=== PATIENT | male | born 1955 | race Caucasian/White ===

== ENCOUNTER 2020-01-17 11:13 | Inpatient (IN) ==
[2020-01-17] MEDS ORDERED: NORMAL SALINE 1,000 ML IV ONE ×2 (11:30→16:03)
[2020-01-17] MEDS ORDERED: MORPHINE SULFATE 4 MG/ML SYRG IV ONE ×2 (11:30→12:48)
[2020-01-17 11:55] LABS: Hematocrit 32.1 % (42.0-52.0); Hemoglobin 10.3 gm/dL (13.5-18.0); Mean Cell Volume 79.1 fl (78-100); Mean Corpuscular Hemoglobin 25.4 pg (27-31); Mean Corpuscular Hgb Conc 32.1 g/dl (32-36); Neutrophil # 8.5 K/mm3 (1.3-6.0); Neutrophil % 83.7 % (42-75.0); Platelet Count 236 K/mm3 (150-450); Red Blood Count 4.06 M/mm3 (4.7-6.0); Red Cell Distribution Width 17.5 % (11.5-14.0); White Blood Count 10.1 K/mm3 (4.0-10.5)
--- NOTE | 2020-01-17 12:06 | ERNOTE ---
Lower Extremity HPI - Narrative Date of Service: 01/17/20 - General Lower Extremities Pain: hip: right Time Seen by Provider: 01/17/20 11:20 Source: patient Exam Limitations: no limitations - Immun/Allergies/Home Medications Immunizations: IMMUNIZATION HX Immunizations Up to Date No History of Influenza Vaccine No Hx Pneumococcal Vaccination No Allergies/Adverse Reactions: Allergies Allergy/AdvReac Type Severity Reaction Status Date / Time No Known Allergies Allergy Unverified 01/17/20 11:16 Home Medications: HOME MEDICATIONS NK 01/17/20 [Last Taken Unknown] - History of Present Illness Narrative: Patient presents to the ED for right hip pain via EMS. He injured his right hip yesterday morning at 4 am. He fell and it "popped". He tried to get around at home but was mostly bed bound and today ambulance called because it was hurting more. no head injury with the fall. No new neck pain (prior neck surgery). Denies other injuries. Has never had hip problem before. No CP or SOB. No clear acute focal N/T/W. Occurred: other - yesterday morning Location of Incident: home Method of Injury: Reports: fell Loss of Consciousness: Reports: no loss of consciousness Modifying Factors - (Improves): Reports: rest Modifying Factors - (Worsens): Reports: movement Associated Symptoms: Reports: unable to bear weight. Denies: headache, sensory loss, chest pain, bowel/bladder problems, other injuries Other Injuries: Reports: none Subsequent Symptoms: Denies: sensory loss, motor loss Prior Treament: Denies: recently seen, similar symptoms before Review of Systems - Review of Systems Constitutional: Absent: fever EYE: Present: no symptoms reported ENT: Absent: sore throat Respiratory: Absent: shortness of breath Cardiology: Absent: chest pain Gastrointestinal/Abdominal: Absent: abdominal pain Genitourinary: Absent: dysuria Musculoskeletal: Present: See HPI Skin: Present: other - no laceration Neurological: Present: no symptoms reported All Other Systems: All systems neg except as marked Medical History (Last Reviewed 01/17/20 @ 12:03 by Reagan Ricks MD) No pertinent past medical history Surgical History: Surgical History (Last Reviewed 01/17/20 @ 12:03 by Reagan Ricks MD) H/O neck surgery x2 Family History: Family History (Last Reviewed 01/17/20 @ 12:03 by Reagan Ricks MD) Brother Diabetes Social History: (Last Reviewed 01/17/20 @ 12:03 by Reagan Ricks MD) Tobacco: Smoking Status: Never smoker Alcohol: alcohol intake frequency: holiday/special occasion Substance Use: substance use type: does not use Physical Exam - Physical Exam General Appearance: Present: alert, no apparent distress, other - pain with any movement of right hip Head Exam: Present: normal inspection, no evidence of injury Eye Exam: Normal inspection: bilateral, PERRL: bilateral Ears, Nose, Throat: Present: normal ENT inspection Neck: Present: normal inspection Respiratory: Present: no respiratory distress, normal breath sounds, no accessory muscle use, lungs clear Cardiovascular/Chest: Present: regular rate, rhythm, normal peripheral pulses Gastrointestinal/Abdominal: Present: normal bowel sounds, nontender, nondistended, soft Back Exam: Present: no vertebral tenderness Extremity Exam: Present: other - right hip tenderness, limited ROM. Foot warm and well perfused Neurological Exam: Present: alert, other - pain limits exam but no clearacute focal motor or sensory deficit Skin Exam: Present: normal color, warm/dry Progress - Results and Orders Patient's Lab Results:: I have reviewed the patient's lab results. - Vital Signs Patient's Vital Signs:: I have reviewed the patient's vital signs. Vital Signs: Vital Signs 01/17/20 11:14 Temperature 37.1 C Pulse Rate 93 Respiratory Rate 18 Blood Pressure 169/70 H O2 Sat by Pulse Oximetry 96 - EKG EKG #1 EKG: NSR EKG read: Interp. by me EKG Comments: NSR rate 82. Non-specific, no STEMI - X-Ray X-Ray #1 X-Ray: chest Interpretation: Interp. by me X-ray Comments: I personally reviewed CXR image as well as official radiology report X-Ray #2 X-Ray: hip Interpretation: Interp. by me X-ray Comments: I personally reviewed hip x-rays as well as official radiology report - Progress/Reassessment Chief Complaint: Hip Pain/Injury Progress Note-Subjective: 01/17/20 12:[address] Low and Dr Hood. Patient will be admitted to the hospital. He understands need for surgery and admission. Departure Clinical Impression: Closed right hip fracture, Fall - Departure Disposition: Still a patient Condition: Stable
[2020-01-17 12:12] LABS: Albumin * 2.9 gm/dl (3.4-5.0); Anion Gap 12.7 mmol/L (6.8-13.8); BUN/Creatinine Ratio 14.5 (9.0-21.6); Bilirubin, Total 1.3 mg/dL (0.0-1.1); Ca. Corrected For Albumin 9.2 mg/dL (8.4-10.2); Calcium * 8.6 mg/dL (7.9-10.9); Carbon Dioxide 25.5 mmol/L (24-32.6); Potassium 3.2 mmol/L (3.4-4.6); Total Protein 6.3 gm/dL (6.2-8.2); Troponin I 0.03 ng/mL (0.00-0.10)
--- NOTE | 2020-01-17 13:24 | CONS ---
[facility] - General Date of Service: 01/17/20 Narrative: Mr. Donahue is a 64-year-old gentleman who injured his right hip yesterday but noted increased pain and thus came to the emergency department was found to have a mildly displaced right femoral neck fracture. He denies any other injury or history of trauma to the pelvis. He otherwise lives at home and is a community ambulator. Source: patient Exam Limitations: no limitations - History of Present Illness Timing/Duration: 24 hours Severity: mild Modifying Factors - (Worsens): Reports: movement Modifying Factors - (Improves): Reports: immobilization Associated Symptoms: denies symptoms Allergies/Adverse Reactions: Allergies No Known Allergies Allergy (Unverified 01/17/20 11:16) Home Medications: Home Medications Medication Instructions Recorded Last Taken NK 01/17/20 Unknown Medications - Medications Current Medications: Current Medications Sodium Chloride (Sodium Chloride 0.9%) 1,000 mls @ 250 mls/hr IV .Q4H ONE Stop: 01/17/20 15:29 Last Admin: 01/17/20 12:01 Dose: 250 mls/hr Documented by: Review of Systems - Review of Systems Narrative: Negative except for above Physical Examination - Exam Narrative: Right lower extremity: Pain with hip range of motion, no ecchymosis, lacerations or abrasions, no gross deformity, palpable dorsalis pedis pulse, sensations at light touch, he is able to flex and extend his toes and ankle Vital Signs: Vital Signs - Last Taken Temp 37.1 C 01/17/20 11:14 Pulse 84 01/17/20 12:13 Resp 16 01/17/20 12:13 BP 135/78 01/17/20 12:13 Pulse Ox 95 01/17/20 12:13 O2 Oxygen Delivery Method Room Air Constitutional: Present: Alert, Oriented x3 - Results and Findings: Narrative: AP pelvis 2 views of right hip: Mildly displaced right femoral neck fracture with underlying advanced hip arthrosis Lab/Microbiology results last 24 hrs: Abnormal/Pending Laboratory Last 24 HRS 01/17/20 01/17/20 11:49 11:49 RBC 4.06 L Hgb 10.3 L Hct 32.1 L MCH 25.4 L RDW 17.5 H Immature Gran % (Auto) 1.00 H Immature Gran # (Auto) 0.10 H Neutrophils % 83.7 H Lymphocytes % 7.9 L Neutrophils # 8.5 H Lymphocytes # 0.80 L Potassium 3.2 L Random Glucose 121 H Total Bilirubin 1.3 H Creatine Kinase 457 H Albumin 2.9 L - Assessments/Findings (1) Closed right hip fracture Diagnosis(s): We discussed his findings and options for treatment. The plan will be for a total hip arthroplasty. Risks and recovery was discussed. He will undergo Covid testing. The plan is to proceed tomorrow pending medical evaluation. Problem: Acute Qualifiers: Encounter type: initial encounter Qualified Code(s): S72.001A - Fracture of unspecified part of neck of right femur, initial encounter for closed fracture
[2020-01-17 14:57] LABS: Urine Bilirubin Negative (NEGATIVE); Urine Ketone 5 mg/dL (NEGATIVE); Urine Nitrite Negative (NEGATIVE); Urine Protein Negative (NEGATIVE); Urine Specific Gravity 1.025 SP.GR. (1.005-1.030)
[2020-01-17] MEDS ORDERED: ACETAMINOPHEN 325 MG TABLET PO PRN (15:07)
[2020-01-17 15:08] LABS: Urine Appearance Slightly Cloudy (CLEAR); Urine Bacteria None Seen; Urine Blood 5 /ul (NEGATIVE); Urine Color Yellow; Urine RBC None Seen /hpf (0-5); Urine WBC None Seen /hpf (0-5)
[2020-01-17] MEDS: MORPHINE SULFATE 4 MG/ML SYRG IV PRN ×2 (15:20→19:23)
[2020-01-17] MEDS ORDERED: POTASSIUM CHLORIDE 20 MEQ TABLET.SA PO ONE (16:01)
--- NOTE | 2020-01-17 16:04 | HP ---
Chief Complaint - Chief Complaint Date of Service: 01/17/20 Time of Service: 15:54 Chief Complaint: I have right hip pain History of Present Illness: 64-year-old male former smoker with no significant past medical history was brought to the ER by EMS for right hip pain secondary to a fall that occurred in the patient's home yesterday morning. The patient reports a precisely 4 AM yesterday he got up from bed and attempted to go to the bathroom but for some reason his leg gave out from under him and he fell onto his right side, patient reports he immediately heard a pop and had excruciating pain. He then managed to get up and decided not to go to the doctor for evaluation but his pain gradually got worse until this morning when he can take it anymore, he then called 911 and had himself transferred to be evaluated. Once in the ER the patient underwent imaging which confirmed a right mildly displaced femoral neck fracture, he was also found to have mildly elevated creatinine kinase most likely secondary to prolonged immobility after falling. Since then he has been treated with IV fluids and pain medications. Ortho was also consulted. Medical History (Last Reviewed 01/17/20 @ 15:28 by Yanelis Johnson RN) No pertinent past medical history Surgical History: Surgical History (Last Reviewed 01/17/20 @ 15:28 by Yanelis Johnson RN) H/O neck surgery x2 Family History: Family History (Last Reviewed 01/17/20 @ 15:28 by Yanelis Johnson RN) Brother Diabetes Social History: (Last Updated 01/17/20 @ 15:29 by Yanelis Johnson RN) Tobacco: Smoking Status: Former smoker Smoking End Date: 04/18/19 Alcohol: alcohol intake frequency: holiday/special occasion Substance Use: substance use type: does not use Peds Patient Hx - Developmental: No Pertinent Hx Peds Patient Hx - Medical: No Pertinent Hx Peds Patient Hx - Cardiac/Respiratory: No Pertinent Hx Peds Patient Hx - Surgical: No Surgical History Patient History - Cancer: No Hx of Cancer Review Of Systems (GEN) - Review of Systems Generalized/Overall Review: Present: No Symptoms Reported EENTM: Present: No Symptoms Reported Respiratory: Present: No Symptoms Reported Cardiac: Present: No Symptoms Reported Abdominal: Present: No Symptoms Reported Genitourinary: Present: No Symptoms Reported Musculoskeletal: Present: Joint Pain - Right hip pain Neurological: Present: No Symptoms Reported Skin: Present: No Symptoms Reported Endocrine: Present: No Symptoms Reported Immunizations: IMMUNIZATION HX Immunizations Up to Date No History of Influenza Vaccine No Hx Pneumococcal Vaccination No Allergies/Adverse Reactions: Allergies Allergy/AdvReac Type Severity Reaction Status Date / Time No Known Allergies Allergy Unverified 01/17/20 11:16 Home Medications: HOME MEDICATIONS NK 01/17/20 [Last Taken Unknown] Exam - Exam Vital Signs: Vital Signs - Last Taken Temp 36.4 C 01/17/20 15:26 Pulse 81 01/17/20 15:26 Resp 16 01/17/20 15:26 BP 144/68 01/17/20 15:26 Pulse Ox 95 01/17/20 15:26 Constitutional: Present: Alert, Oriented x3, Cooperative, Well developed, Well nourished, No distress Eye Exam: bilateral eye: normal inspection, PERRL, EOMI Neck: Present: non-tender, full range of motion, supple, normal inspection, trachea midline Back Exam: Present: normal inspection, no CVA tenderness, no vertebral tenderness Breasts: Present: Exam deferred, Nontender Respiratory: Present: chest non-tender, lungs clear, normal breath sounds, no respiratory distress, no accessory muscle use Cardiovascular/Chest: Present: normal peripheral pulses, regular rate, rhythm, no chest tenderness, no edema, no gallop, no JVD, no murmur, no rub Peripheral Pulses: femoral (R): 3+, femoral (L): 3+, dorsalis-pedis (R): 3+, dorsalis-pedis (L): 3+ Abdomen: Present: Normal bowel sounds, soft, nontender, nondistended, no rebound tenderness, no hepatospenomegaly, no masses, obese /Rectal: Present: Exam deferred Extremity: Present: no pedal edema, no calf tenderness, normal capillary refill, leg pain, other - Right lower extremity externally rotated and shortened, pulses and sensation intact Skin Exam: Present: normal color, warm/dry, no cyanosis Lymphatic: Present: no adenopathy Neurologic: Present: 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, no motor/sensory deficits, alert, normal mood/affect, oriented x 3 Appearance: Present: appropriate appearance, appropriate insight, neat, no memory impairment Eye contact: Present: cooperative, good eye contact, normal speech Thoughts: Present: normal thought pattern, no apparent hallucination Diagnostic Studies: Abnormal Lab Results 01/17/20 01/17/20 01/17/20 Range/Units 11:49 11:49 14:49 RBC 4.06 L (4.7-6.0) M/mm3 Hgb 10.3 L (13.5-18.0) gm/dL Hct 32.1 L (42.0-52.0) % MCH 25.4 L (27-31) pg RDW 17.5 H (11.5-14.0) % Immature Gran % (Auto) 1.00 H (0.001-0.429) % Immature Gran # (Auto) 0.10 H (0.000-0.0310) K/mm3 Neutrophils % 83.7 H (42-75.0) % Lymphocytes % 7.9 L (20-51) % Neutrophils # 8.5 H (1.3-6.0) K/mm3 Lymphocytes # 0.80 L (1.5-3.5) k/mm3 Potassium 3.2 L (3.4-4.6) mmol/L Random Glucose 121 H (70-110) mg/dL Total Bilirubin 1.3 H (0.0-1.1) mg/dL Creatine Kinase 457 H (0-259) U/L Albumin 2.9 L (3.4-5.0) gm/dl Urine Blood 5 H (NEGATIVE) /ul Urine Urobilinogen 2.0 H (NORMAL) EU/dl Laboratory Results WBC 10.1 K/mm3 (4.0-10.5) 01/17/20 11:49 RBC 4.06 M/mm3 (4.7-6.0) L 01/17/20 11:49 Hgb 10.3 gm/dL (13.5-18.0) L 01/17/20 11:49 Hct 32.1 % (42.0-52.0) L 01/17/20 11:49 MCV 79.1 fl (78-100) 01/17/20 11:49 MCH 25.4 pg (27-31) L 01/17/20 11:49 MCHC 32.1 g/dl (32-36) 01/17/20 11:49 RDW 17.5 % (11.5-14.0) H 01/17/20 11:49 Plt Count 236 K/mm3 (150-450) 01/17/20 11:49 MPV 8.0 fl (8-11.3) 01/17/20 11:49 Immature Gran % (Auto) 1.00 % (0.001-0.429) H 01/17/20 11:49 Immature Gran # (Auto) 0.10 K/mm3 (0.000-0.0310) H 01/17/20 11:49 Neutrophils % 83.7 % (42-75.0) H 01/17/20 11:49 Lymphocytes % 7.9 % (20-51) L 01/17/20 11:49 Monocytes % 7.3 % (0.0-9) 01/17/20 11:49 Eosinophils % 0.0 % (0.0-3.0) 01/17/20 11:49 Basophils % 0.1 % (0.0-1.0) 01/17/20 11:49 Nucleated RBC % 0.0 k/mm3 (0-1) 01/17/20 11:49 Neutrophils # 8.5 K/mm3 (1.3-6.0) H 01/17/20 11:49 Lymphocytes # 0.80 k/mm3 (1.5-3.5) L 01/17/20 11:49 Monocytes # 0.7 k/mm3 (0.0-1.0) 01/17/20 11:49 Eosinophils # 0.0 k/mm3 (0.0-0.7) 01/17/20 11:49 Absolute Basophils 0.0 k/mm3 (0.0-0.1) 01/17/20 11:49 Sodium 135 mmol/L (132-142) 01/17/20 11:49 Plasma Sodium 135 mmol/L (130-142) 01/17/20 11:49 Potassium 3.2 mmol/L (3.4-4.6) L 01/17/20 11:49 Chloride 100 mmol/L (97-106) 01/17/20 11:49 Carbon Dioxide 25.5 mmol/L (24-32.6) 01/17/20 11:49 Anion Gap 12.7 mmol/L (6.8-13.8) 01/17/20 11:49 BUN 10 mg/dL (6-23) 01/17/20 11:49 Creatinine 0.69 mg/dL (0.4-1.4) 01/17/20 11:49 Est GFR (Non-Af Amer) 123 mL/min (60-130) 01/17/20 11:49 BUN/Creatinine Ratio 14.5 (9.0-21.6) 01/17/20 11:49 Random Glucose 121 mg/dL (70-110) H 01/17/20 11:49 Lactic Acid, Venous 1.1 mmol/L (0.4-2.0) 01/17/20 11:49 Calcium 8.6 mg/dL (7.9-10.9) 01/17/20 11:49 Calcium Adj for Albumin 9.2 mg/dL (8.4-10.2) 01/17/20 11:49 Total Bilirubin 1.3 mg/dL (0.0-1.1) H 01/17/20 11:49 AST 23 U/L (0-48) 01/17/20 11:49 ALT 24 U/L (19-67) 01/17/20 11:49 Alkaline Phosphatase 77 U/L (50-170) 01/17/20 11:49 Creatine Kinase 457 U/L (0-259) H 01/17/20 11:49 Troponin I 0.030 ng/mL (0.00-0.10) 01/17/20 11:49 Total Protein 6.3 gm/dL (6.2-8.2) 01/17/20 11:49 Albumin 2.9 gm/dl (3.4-5.0) L 01/17/20 11:49 Urine Color Yellow 01/17/20 14:49 Urine Appearance Slightly cloudy (CLEAR) 01/17/20 14:49 Urine pH 6.0 pH (5.0-7.0) 01/17/20 14:49 Ur Specific [place] 1.025 SP.GR. (1.005-1.030) 01/17/20 14:49 Urine Protein Negative mg/dL (NEGATIVE) 01/17/20 14:49 Urine Glucose (UA) Negative mg/dL (NEGATIVE) 01/17/20 14:49 Urine Ketones 5 mg/dL (NEGATIVE) 01/17/20 14:49 Urine Blood 5 /ul (NEGATIVE) H 01/17/20 14:49 Urine Nitrate Negative (NEGATIVE) 01/17/20 14:49 Urine Bilirubin Negative mg/dl (NEGATIVE) 01/17/20 14:49 Urine Urobilinogen 2.0 EU/dl (NORMAL) H 01/17/20 14:49 Ur Leukocyte Esterase Negative /ul (NEGATIVE) 01/17/20 14:49 Urine RBC None seen /hpf (0-5) 01/17/20 14:49 Urine WBC None seen /hpf (0-5) 01/17/20 14:49 Ur Epithelial Cells 0-5 /hpf (0-5) 01/17/20 14:49 Urine Bacteria None seen (NONE) 01/17/20 14:49 Urine Culture Comments No culture indicated 01/17/20 14:49 SARS-CoV-2 (PCR) Not detected (NotDetected) 01/17/20 12:13 Assessment/Plan - Narrative Narrative: Patient was evaluated medical chart was reviewed and decision to admit to [facility] for diagnosis of right femoral neck fracture was made. The patient was evaluated by Ortho who plans on taking him to the OR in the morning to repair the fracture. In the meantime we will continue to monitor him and manage his pain. His potassium was found to be mildly decreased, so we will give him potassium supplement. After evaluating the patient, he was cleared for his surgery. - Assessment/Plan (1) Closed right hip fracture Problem: Acute Qualifiers: Encounter type: initial encounter Qualified Code(s): S72.001A - Fracture of unspecified part of neck of right femur, initial encounter for closed fracture (2) Fall Problem: Acute (3) Hypokalemia Problem: Acute (4) Elevated creatine kinase Problem: Acute
[2020-01-18] MEDS ORDERED: NORMAL SALINE 1,000 ML IV ONE (00:02)
[2020-01-18] MEDS: MORPHINE SULFATE 4 MG/ML SYRG IV PRN ×3 (00:02→08:50)
[2020-01-18 06:50] LABS: Albumin * 2.6 gm/dl (3.4-5.0); Anion Gap 13.7 mmol/L (6.8-13.8); BUN/Creatinine Ratio 15.5 (9.0-21.6); Bilirubin, Total 0.8 mg/dL (0.0-1.1); Calcium * 8.2 mg/dL (7.9-10.9); Carbon Dioxide 22.8 mmol/L (24-32.6); Potassium 3.5 mmol/L (3.4-4.6); Total Protein 5.7 gm/dL (6.2-8.2)
[2020-01-18] MEDS ORDERED: ceFAZolin SODIUM 1 GM VIAL ONE (07:57)
[2020-01-18] MEDS ORDERED: ISOPROPYL ALCOHOL 480 APPL BTL MC ONE (07:57)
--- NOTE | 2020-01-18 08:50 | ANES ---
Anesthesia Pre Procedure Eval Vitals/Labs: Last Vital Signs Temp 37.2 C 01/18/20 06:58 Pulse 82 01/18/20 06:58 Resp 16 01/18/20 06:58 BP 159/64 H 01/18/20 06:58 Pulse Ox 92 L 01/18/20 06:58 HOME MEDICATIONS NK 01/17/20 [Last Taken Unknown] Allergies/Adverse Reactions: Allergies Allergy/AdvReac Type Severity Reaction Status Date / Time No Known Allergies Allergy Unverified 01/17/20 11:16 - Planned Procedure Planned Procedure: Right Hip Fracture Medication List Reviewed:: Yes Allergies Verified: Yes Medical History (Last Reviewed 01/18/20 @ 08:49 by Humphrey Latif CRNA) No pertinent past medical history Surgical History (Last Reviewed 01/18/20 @ 08:49 by Humphrey Latif CRNA) H/O neck surgery x2 Family History (Last Reviewed 01/18/20 @ 08:49 by Humphrey Latif CRNA) Brother Diabetes - Airway/Neck/Teeth Within Normal Limits:: Yes Teeth Condition: missing Mallampatti Score: 2 Thyromental (T-M) distance: > 6 cm Mandibulo Hyoid distance: > 3 cm - Respiratory Respiratory Physical: lungs clear Smoking Status: Former smoker Discussed smoking cessation including day of surgery: No Sleep Apnea currently treated: No Sleep Apnea by current assessment: No Discussed Risks/Treatment of RADHA: No - Cardiovascular Tolerate Activity: Good Heart Sounds: S1 & S2, Regular - Gastrointestinal NPO since: mn - Anesthesia Assessment and Plan ASA Class: PS, II Anesthesia Type Plan: Spinal
[2020-01-18] MEDS ORDERED: LIDOCAINE HCL 20 ML VIAL ONE (08:55)
[2020-01-18] MEDS ORDERED: fentaNYL CITRATE/PF 50 MCG/ML AMPUL ONE (08:55)
[2020-01-18] MEDS ORDERED: ONDANSETRON HCL/PF 2 MG/ML VIAL ONE (08:55)
[2020-01-18] MEDS ORDERED: PROPOFOL VIAL IV ONE (08:56)
[2020-01-18] MEDS: RINGER'S SOLUTION,LACTATED 1,000 ML IV PRN ×2 (09:02→10:45)
[2020-01-18] MEDS ORDERED: TRANEXAMIC ACID 1,000 MG in NORMAL SALINE 100 ML IV ONE (10:00)
[2020-01-18] MEDS ORDERED: ceFAZolin SODIUM 1 GM VIAL IV PRN (10:13)
--- NOTE | 2020-01-18 11:03 | OR ---
Operative Report - Dictated Report Narrative: Date: 01/18/2020 Preoperative diagnosis: Right closed displaced femoral neck fracture with hip degenerative joint disease. Postoperative diagnosis: Right closed displaced femoral neck fracture with hip degenerative joint disease. Procedure: Right total hip arthroplasty. Surgeon: Catrachito Low M.D. Supervisor Research [employer]: Renzo Rodas PA-C (provided an essential set of skilled, educated and assisted with transfer, positioning, prepping, draping, manipulation, traction, irrigation, suturing, and placement of dressings all of which cannot be performed by the available surgical crew) Anesthesia: Spinal. Complications: None Specimens: Bone. Estimated blood loss: 100 milliliters. Retained implants: [place] size 6 femoral stem high offset. Size 54 millimeter outside diameter 3-hole [place] Gription acetabular cup. 54 millimeter outside by 40 millimeter inside diameter highly cross-linked acetabular liner. 40 millimeter diameter + 1.5 millimeter cobalt chromium femoral head. Cancellous 6.5mm screw 30 millimeter length Indications: Mr. Donahue is a 64-year-old gentleman who fell injuring his right hip. He was found have a displaced femoral neck fracture as well as underlying arthrosis. Patient wished to proceed with surgical treatment. The risks, benefits, and alternatives were discussed in clinic. The risks of , blood clots, bleeding, infection, nerve/tendon blood vessel/ injury, malposition of components, dislocation and/or instability of joint, intraoperative fracture, postoperative limited range of motion, persistent pain, failure of components, and need for additional procedures. Patient wished to proceed. Consent was obtained after answering all questions. Procedure: After marking the correct extremity on the floor, the patient was taken to the operating room. A timeout was performed. IV antibiotics consisting of Ancef were administered prior to the procedure. A spinal anesthetic was induced by anesthesia. A Zarate catheter was inserted. The patient was then transitioned to a lateral position on a well-padded pegboard. An axillary roll was placed. The head was in neutral position. The non- operative down leg was well-padded with SCD and ADILENE hose in place. The arms were supported and padded to protect from any undue pressure on the bony prominences and nerves. A well-padded anterior and posterior pelvic and chest posts were secured in order to maintain a stable position of the pelvis. This was placed so that the pelvis was perpendicular to the floor. The body was in line with the pelvis. Once it was felt that we had protected all the bony prominences and the patient was well secured with a safety belt as well, the leg was pre-scrubbed with alcohol, prepped and draped in a standard sterile fashion. A standard anterior lateral hip incision was marked out over the greater trochanter. [place] drapes were then placed. The skin incision was then made. Sharp dissection with a scalpel utilizing cautery for hemostasis was carried out down to the gluteus and iliotibial band fascia. This was split in line with the skin incision. The greater trochanter bursa was excised. The anterior and posterior margins of the abductor tendon were identified. The anterior 1/2-1/3 of the tendon was tagged and reflected off the greater trochanter leaving a sleeve of tendon for repair at the completion of the case. This exposed the underlying hip joint capsule. An inverted T-type capsulotomy was made extending this up to the brim of the acetabulum. We encountered a hematoma and noted displaced femoral neck fracture. Using Homans to assist with elevation of the soft tissues off the anterior, superior, and inferior aspects of the femoral neck, the hip was then placed in a figure 4 position and the femoral head was dislocated. With the leg in an externally rotated and adducted position, the cutting flag was utilized in order to goyo for a standard femoral neck cut approximately a fingerbreadth above the level of the lesser trochanter. This was done with reference to pre-operative films and overall alignment. This was done while protecting the surrounding soft tissues with Homans. The femoral head was then removed and sized for guidance on preparation of the acetabulum. It was noted that there was loss of articular cartilage on both the femoral head and weightbearing portions of the acetabulum. We then returned the leg to the table and turned our attention to the acetabulum. While protecting the surrounding soft tissues, the labrum and remaining tissue in the fovea were excised using a scalpel and cautery. A series of reamers up to size 54 millimeter were utilized to prepare the acetabulum. The final reamer had good purchase and exposed the bleeding subchondral bone. The acetabulum was then thoroughly irrigated ensuring that all bony and cartilaginous materials were removed, and the final acetabular shell was impacted into place. This was placed in approximately 45 degrees of abduction and 20 degrees of anteversion utilizing the outrigger and body axis for alignment. This had a good press fit. 1 6.5mm cancellous screw was placed in the superior posterior quadrant of the acetabulum. The shell was then thoroughly irrigated and the final polyethylene was impacted into place ensuring that it seated completely. This was then protected with a sponge while we returned our attention to the femur. With the leg in a figure 4 position, utilizing Homans for soft tissue protection, a box cutting osteotome, followed by Charnley awl, followed by serial reamers and broaches were utilized in order to prepare the femur. It was found that a size 6 broach gave good axial and rotational stability. The calcar reamer was utilized in order to clean up the cut edges. The proximal femur was visualized to ensure that there were no signs of fracture. A series of heads and necks were trialed. It was found that a high offset neck and a + 1.5 femoral head gave good overall stability. There was minimal longitudinal instability. With the leg in the position of sleep, the femoral head was well covered. Hip range of motion was able to reach full extension and external rotation to greater than 75 degrees prior to impingement along the posterior acetabulum. The hip was able to be flexed to greater than 90 degrees with internal rotation greater than 60 degrees prior to anterior impingement. The limb lengths were near equal based on comparison to the contralateral side and the prior placed limb length stitch. At this point it was felt these were the appropriately sized femoral components as well as neck and femoral head. The trial implants were removed. The femur was thoroughly irrigated. The final implants were impacted into place, and the hip was reduced. Anesthesia then administered intravenous tranexamic acid. The capsule was repaired with a single interrupted #1 Vicryl. The abductor tendon was repaired to the greater trochanter utilizing #5 Ethibond through drill holes. This was oversewn with #1 Vicryl. The fascia was closed with int errupted #1 Vicryl. The wounds were thoroughly irrigated as we closed in layers. The deep and subcutaneous fat layers were closed with 0 and 3-0 Vicryl respectively. The subcutaneous tissue was closed with a running 3-0 Vicryl and the skin heather. All sponge, needle, blade, and instrument counts were correct prior to closing the wounds. Sterile dressings consisting of xeroform, 4 x 4's, and tape were applied. The patient was awoken and transferred to her hospital bed and then to the postanesthesia care unit in stable condition. Postoperative condition: The plan is to admit to the medical/surgical inpatient floor postoperatively. There will be a projected 1 to 3 day hospital stay. Postoperatively 24 hours of IV antibiotics, pain control, physical therapy, occupational therapy, and medical comanagement will be utilized. Patient will be weightbearing as tolerated with anterior hip precautions. Postoperative films will be obtained in the recovery room.
[2020-01-18] MEDS ORDERED: DEXTROSE 5%-LACTATED RINGERS 1,000 ML IV PRN (11:04)
[2020-01-18] MEDS ORDERED: ACETAMINOPHEN 500 MG TABLET PO PRN (11:04)
[2020-01-18] MEDS ORDERED: MAG HYDROX/ALUMINUM HYD/SIMETH 30 ML UDC PO PRN (11:04)
[2020-01-18] MEDS ORDERED: ONDANSETRON HCL/PF 2 MG/ML VIAL IV PRN (11:04)
[2020-01-18] MEDS ORDERED: diphenhydrAMINE HCL 50 MG/ML VIAL IV PRN (11:04)
[2020-01-18] MEDS ORDERED: MAGNESIUM HYDROXIDE 30 ML UDC PO PRN (11:04)
[2020-01-18] MEDS ORDERED: ZOLPIDEM TARTRATE 5 MG TABLET PO PRN (11:04)
--- NOTE | 2020-01-18 11:27 | ANES ---
Post Anesthesia Discharge - Transfer of Care Transfer of Care handoff given to nurse: Yes - Discharge from PACU Discharge from PACU when meets criteria: Yes - Discharge to ASU Discharge to ASU-no complications/pt stable: Yes
--- NOTE | 2020-01-18 11:38 | ANES ---
Post Anesthesia Assessment - Vital Signs Vitals: Last Vital Signs Temp 36.2 C 01/18/20 11:05 Pulse 84 01/18/20 11:25 Resp 12 01/18/20 11:25 BP 117/63 01/18/20 11:25 Pulse Ox 97 01/18/20 11:25 Airway Patency: Normal - Mental Status Level Of Consciousness: Awake - Pain Level Pain Score: 0 - N/V Assessment Nausea/Vomiting Presence: None Dehydration:: No
[2020-01-18] MEDS: KETOROLAC TROMETHAMINE 15 MG/ML VIAL IV SCH ×2 (11:41→19:24)
--- NOTE | 2020-01-18 11:59 | PN ---
Subjective - Date and Time Seen Date: 01/18/20 Time: 11:53 Subjective Narrative: I feel okay, my hip pain is better. Objective Objective Narrative: 64-year-old male status post total right hip arthroplasty was evaluat ed at bedside and was found to be afebrile and in no acute distress. Patient just returned from the OR where he underwent a total arthroplasty to repair his right hip fracture. There were no adverse events reported and the surgery went smoothly. Right now the patient is in his room resting comfortably, he denies any pain at the moment but pain medications were ordered to be administered if necessary. The patient will stay for additional days in the hospital to recover from his surgery and to start rehab. We will follow up with further recommendations from Ortho. - Review of Systems Generalized/Overall Review: Reports: No Symptoms Reported EENTM: Reports: No Symptoms Reported Respiratory: Reports: No Symptoms Reported Cardiac: Reports: No Symptoms Reported Abdominal: Reports: No Symptoms Reported Genitourinary Symptoms: Reports: No Symptoms Reported Musculoskeletal Complaints: Reports: Joint Pain Neurological: Reports: No Symptoms Reported Skin: Reports: No Symptoms Reported Endocrine: Reports: No Symptoms Reported - Vitals Vitals: Last Vital Signs Temp 36.1 C 01/18/20 11:30 Pulse 94 01/18/20 11:30 Resp 92 H 01/18/20 11:30 BP 125/73 01/18/20 11:30 Pulse Ox 95 01/18/20 11:30 - Abnormal Lab Findings Abnormal Lab Findings: Abnormal Lab Results 01/17/20 01/17/20 01/17/20 Range/Units 11:49 11:49 14:49 RBC 4.06 L (4.7-6.0) M/mm3 Hgb 10.3 L (13.5-18.0) gm/dL Hct 32.1 L (42.0-52.0) % MCH 25.4 L (27-31) pg RDW 17.5 H (11.5-14.0) % Immature Gran % (Auto) 1.00 H (0.001-0.429) % Immature Gran # (Auto) 0.10 H (0.000-0.0310) K/mm3 Neutrophils % 83.7 H (42-75.0) % Lymphocytes % 7.9 L (20-51) % Neutrophils # 8.5 H (1.3-6.0) K/mm3 Lymphocytes # 0.80 L (1.5-3.5) k/mm3 Potassium 3.2 L (3.4-4.6) mmol/L Carbon Dioxide (24-32.6) mmol/L Random Glucose 121 H (70-110) mg/dL Total Bilirubin 1.3 H (0.0-1.1) mg/dL Creatine Kinase 457 H (0-259) U/L Total Protein (6.2-8.2) gm/dL Albumin 2.9 L (3.4-5.0) gm/dl Urine Blood 5 H (NEGATIVE) /ul Urine Urobilinogen 2.0 H (NORMAL) EU/dl 01/18/20 Range/Units 06:20 RBC (4.7-6.0) M/mm3 Hgb (13.5-18.0) gm/dL Hct (42.0-52.0) % MCH (27-31) pg RDW (11.5-14.0) % Immature Gran % (Auto) (0.001-0.429) % Immature Gran # (Auto) (0.000-0.0310) K/mm3 Neutrophils % (42-75.0) % Lymphocytes % (20-51) % Neutrophils # (1.3-6.0) K/mm3 Lymphocytes # (1.5-3.5) k/mm3 Potassium (3.4-4.6) mmol/L Carbon Dioxide 22.8 L (24-32.6) mmol/L Random Glucose (70-110) mg/dL Total Bilirubin (0.0-1.1) mg/dL Creatine Kinase (0-259) U/L Total Protein 5.7 L (6.2-8.2) gm/dL Albumin 2.6 L (3.4-5.0) gm/dl Urine Blood (NEGATIVE) /ul Urine Urobilinogen (NORMAL) EU/dl - Exam Constitutional: Present: Alert, Oriented x3, Cooperative, Well developed, Well nourished, No distress ENT Exam: Present: normal ENT inspection, hearing grossly normal Neck: Present: non-tender, full range of motion, supple, normal inspection, trachea midline Breasts: Present: Exam deferred Respiratory: Present: chest non-tender, lungs clear, normal breath sounds, no respiratory distress, no accessory muscle use Cardiovascular/Chest: Present: normal peripheral pulses, regular rate, rhythm, no chest tenderness, no edema, no gallop, no JVD, no murmur, no rub Abdomen: Present: Normal bowel sounds, soft, nontender, nondistended, no rebound tenderness, no hepatospenomegaly, no masses /Rectal: Present: Exam deferred Extremity: Present: no pedal edema, no calf tenderness, normal capillary refill, other - Right hip covered by clean dry dressings, no evidence of acute bleeding. 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, no motor/sensory deficits, alert, normal mood/affect, oriented x 3 Appearance: Present: appropriate appearance, appropriate insight, neat, no memory impairment Eye contact: Present: cooperative, good eye contact, normal speech Thoughts: Present: normal thought pattern, no apparent hallucination Cauti Physician Documentation - Urinary Catheter Management Urethral (Zarate) Urethral Indwelling: Yes Date of Insertion: 01/18/20 Time of Insertion: 09:35 Assessment/Plan - Problems/Diagnosis (1) Closed right hip fracture Problem: Acute Qualifiers: Encounter type: initial encounter Qualified Code(s): S72.001A - Fracture of unspecified part of neck of right femur, initial encounter for closed fracture (2) Fall Problem: Acute (3) Hypokalemia Problem: Acute (4) Elevated creatine kinase Problem: Acute (5) S/P total hip arthroplasty Problem: Acute
[2020-01-18] MEDS: ceFAZolin SODIUM 1 GM in DEXTROSE 5 % IN WATER 100 ML IV SCH ×4 (12:41→19:24)
[2020-01-18] MEDS: oxyCODONE HCL/ACETAMINOPHEN 1 TAB TABLET PO PRN (16:42)
[2020-01-18] MEDS ORDERED: SENNOSIDES/DOCUSATE SODIUM 1 TAB TABLET PO SCH (21:00)
[2020-01-19] MEDS: KETOROLAC TROMETHAMINE 15 MG/ML VIAL IV SCH ×2 (00:26→07:26)
[2020-01-19] MEDS: ceFAZolin SODIUM 1 GM in DEXTROSE 5 % IN WATER 100 ML IV SCH ×2 (00:27)
[2020-01-19 06:19] LABS: Hematocrit 29.6 % (42.0-52.0); Hemoglobin 9.2 gm/dL (13.5-18.0); Mean Cell Volume 81.8 fl (78-100); Mean Corpuscular Hemoglobin 25.4 pg (27-31); Mean Corpuscular Hgb Conc 31.1 g/dl (32-36); Mean Platelet Volume 8.5 fl (8-11.3); Neutrophil # 6.9 K/mm3 (1.3-6.0); Neutrophil % 77.4 % (42-75.0); Platelet Count 230 K/mm3 (150-450); Red Blood Count 3.62 M/mm3 (4.7-6.0); Red Cell Distribution Width 17.5 % (11.5-14.0); White Blood Count 8.9 K/mm3 (4.0-10.5)
[2020-01-19 06:33] LABS: Albumin * 2.5 gm/dl (3.4-5.0); Anion Gap 9.7 mmol/L (6.8-13.8); BUN/Creatinine Ratio 13.5 (9.0-21.6); Bilirubin, Total 0.9 mg/dL (0.0-1.1); Calcium * 8.1 mg/dL (7.9-10.9); Carbon Dioxide 25.4 mmol/L (24-32.6); Potassium 3.1 mmol/L (3.4-4.6); Total Protein 5.4 gm/dL (6.2-8.2)
[2020-01-19] MEDS: oxyCODONE HCL/ACETAMINOPHEN 1 TAB TABLET PO PRN ×3 (07:25→18:40)
--- NOTE | 2020-01-19 08:53 | PN ---
Subjective - Date and Time Seen Date: 01/19/20 Time: 10:00 Subjective Narrative: Subjective: Reports mild pain. Was able to move about the bed with therapy. Pain is well-controlled. Voiding without any complications. Tolerating by mouth intake. Denies any nausea or vomiting. Denies calf pain. Slept well. Physical exam: Alert and oriented to person, place and time Right lower extremity: Palpable dorsalis pedis pulse. Sensation grossly intact to light touch. Dressings clean and dry. Able to flex and extend ankle and toes. No excessive drainage. Calf and thigh are soft and nontender. Assessment: Postop day 1 status post right total hip arthroplasty. Plan: Continue with physical and occupational therapy weightbearing as tolerated. Continue with anticoagulation. 24 hours postoperative prophylactic antibiotics. Pain control with goal to rely on oral medications. Continue bowel regimen. Will need 6 weeks with walker or assitive device to protect joint while ambulating during the recovery process. Discharge planning. Objective - Vitals Vitals: Last Vital Signs Temp 38.0 C 01/19/20 07:15 Pulse 89 01/19/20 07:15 Resp 12 01/19/20 07:15 BP 112/70 01/19/20 07:15 Pulse Ox 96 01/19/20 07:15 - Abnormal Lab Findings Abnormal Lab Findings: Abnormal Lab Results 01/19/20 01/19/20 Range/Units 06:10 06:10 RBC 3.62 L (4.7-6.0) M/mm3 Hgb 9.2 L (13.5-18.0) gm/dL Hct 29.6 L (42.0-52.0) % MCH 25.4 L (27-31) pg MCHC 31.1 L (32-36) g/dl RDW 17.5 H (11.5-14.0) % Immature Gran # (Auto) 0.04 H (0.000-0.0310) K/mm3 Neutrophils % 77.4 H (42-75.0) % Lymphocytes % 10.7 L (20-51) % Monocytes % 10.6 H (0.0-9) % Neutrophils # 6.9 H (1.3-6.0) K/mm3 Lymphocytes # 0.95 L (1.5-3.5) k/mm3 Potassium 3.1 L (3.4-4.6) mmol/L Random Glucose 114 H (70-110) mg/dL Total Protein 5.4 L (6.2-8.2) gm/dL Albumin 2.5 L (3.4-5.0) gm/dl Cauti Physician Documentation - Urinary Catheter Management Urethral (Zarate) Urethral Indwelling: Yes Date of Insertion: 01/18/20 Time of Insertion: 09:35 Assessment/Plan - Problems/Diagnosis (1) Closed right hip fracture Problem: Acute Qualifiers: Encounter type: subsequent encounter Narrative: WBAT, Anterior hip precautions. Will need 7 days of lovenox followed by 5 weeks of daily aspirin 325mg. Keep wound dry. Cover with dry gauze. Use walker. Follow-up 2 weeks. OK to DC from ortho standpoint. Pain meds.
[2020-01-19] MEDS ORDERED: ENOXAPARIN SODIUM 40 MG/0.4 ML SYRG SC SCH (10:04)
[2020-01-19] MEDS ORDERED: POTASSIUM CHLORIDE 20 MEQ TABLET.SA PO ONE (11:30)
--- NOTE | 2020-01-19 12:09 | DS ---
(1) Closed right hip fracture Problem: Acute Qualifiers: Encounter type: subsequent encounter (2) Fall Problem: Acute (3) Hypokalemia Problem: Acute (4) Elevated creatine kinase Problem: Acute (5) S/P total hip arthroplasty Problem: Acute Qualifiers: Laterality: right Qualified Code(s): Z96.641 - Presence of right artificial hip joint Date of Discharge:: 01/19/20 Hospital Course: 64-year-old male admitted for a right femoral neck fracture secondary to a fall that occurred in his home was evaluated at bedside and was found to be afebrile and in no acute distress. Patient underwent a successful surgery to repair his fracture, there were no adverse events reported. The postop period has been uneventful and he appears to be recuperating very well. The patient reports adequate pain control with the current pain medications that he is being administered, so we'll not make any changes. The patient was cleared for discharge by the orthopedic surgeon who recommends 6 weeks of anticoagulation and ongoing PT to help with the patient's rehab. This was discussed with the patient he is in agreement that he wants to go home and plans on doing physical therapy on outpatient basis. Therefore we will discharge patient home with instructions to follow-up with the orthopedic surgeon in a few weeks. Procedures Performed: see notes below - Right total hip arthroplasty Results and Findings: Lab Pending Results 01/17/20 11:49: WBC 10.1, RBC 4.06 L, Hgb 10.3 L, Hct 32.1 L, MCV 79.1, MCH 25.4 L, MCHC 32.1, RDW 17.5 H, Plt Count 236, MPV 8.0, Immature Gran % (Auto) 1.00 H, Immature Gran # (Auto) 0.10 H, Neutrophils % 83.7 H, Lymphocytes % 7.9 L, Monocytes % 7.3, Eosinophils % 0.0, Basophils % 0.1, Nucleated RBC % 0.0, Neutrophils # 8.5 H, Lymphocytes # 0.80 L, Monocytes # 0.7, Eosinophils # 0.0, Absolute Basophils 0.0 01/17/20 11:49: Sodium 135, Plasma Sodium 135, Potassium 3.2 L, Chloride 100, Carbon Dioxide 25.5, Anion Gap 12.7, BUN 10, Creatinine 0.69, Est GFR (Non-Af Amer) 123, BUN/Creatinine Ratio 14.5, Random Glucose 121 H, Calcium 8.6, Calcium Adj for Albumin 9.2, Total Bilirubin 1.3 H, AST 23, ALT 24, Alkaline Phosphatase 77, Creatine Kinase 457 H, Troponin I 0.030, Total Protein 6.3, Albumin 2.9 L 01/17/20 11:49: Lactic Acid, Venous 1.1 01/17/20 12:13: SARS-CoV-2 (PCR) Not detected 01/17/20 14:49: Urine Color Yellow, Urine Appearance Slightly cloudy, Urine pH 6.0, Ur Specific [place] 1.025, Urine Protein Negative, Urine Glucose (UA) Negative, Urine Ketones 5, Urine Blood 5 H, Urine Nitrate Negative, Urine Bilirubin Negative, Urine Urobilinogen 2.0 H, Ur Leukocyte Esterase Negative, Urine RBC None seen, Urine WBC None seen, Ur Epithelial Cells 0-5, Urine Bacteria None seen, Urine Culture Comments No culture indicated 01/18/20 06:20: Sodium 136, Plasma Sodium 136, Potassium 3.5, Chloride 103, Carbon Dioxide 22.8 L, Anion Gap 13.7, BUN 11, Creatinine 0.71, Est GFR (Non-Af Amer) 119, BUN/Creatinine Ratio 15.5, Random Glucose 92, Calcium 8.2, Calcium Adj for Albumin 9.0, Total Bilirubin 0.8, AST 26, ALT 25, Alkaline Phosphatase 63, Total Protein 5.7 L, Albumin 2.6 L 01/19/20 06:10: WBC 8.9, RBC 3.62 L, Hgb 9.2 L, Hct 29.6 L, MCV 81.8, MCH 25.4 L, MCHC 31.1 L, RDW 17.5 H, Plt Count 230, MPV 8.5, Immature Gran % (Auto) 0.40, Immature Gran # (Auto) 0.04 H, Neutrophils % 77.4 H, Lymphocytes % 10.7 L, Monocytes % 10.6 H, Eosinophils % 0.7, Basophils % 0.2, Nucleated RBC % 0.0, Neutrophils # 6.9 H, Lymphocytes # 0.95 L, Monocytes # 0.9, Eosinophils # 0.1, Absolute Basophils 0.0 01/19/20 06:10: Sodium 132, Plasma Sodium 132, Potassium 3.1 L, Chloride 100, Carbon Dioxide 25.4, Anion Gap 9.7, BUN 10, Creatinine 0.74, Est GFR (Non-Af Amer) 113, BUN/Creatinine Ratio 13.5, Random Glucose 114 H, Calcium 8.1, Calcium Adj for Albumin 9.0, Total Bilirubin 0.9, AST 29, ALT 26, Alkaline Phosphatase 62, Total Protein 5.4 L, Albumin 2.5 L Discharge Location: Home Disposition: Home self-care Condition: Stable Face to Face Encounter completed per [facility] Guidelines: No Discharge Activity: Activity as tolerated Discharge Diet: General/regular food [facility] Therapy: Physical Therapy Prescriptions (Any new or edited meds): Aspirin 325 mg PO DAILY 35 Days #35 tab Transmission Status: Pending to [facility] Enoxaparin Sodium [Lovenox] 40 mg SQ DAILY 7 Days #7 ml Transmission Status: Pending to [facility] oxyCODONE HCL/ACETAMINOPHEN [Percocet 5-325 mg Tablet] 1 each PO Q4H PRN #40 tablet PRN Reason: Pain Transmission Status: Sent to [facility] Complete Home Medications List: Complete Home Medication List: Aspirin 325 mg PO DAILY 35 Days #35 tab 01/19/20 Enoxaparin Sodium [Lovenox] 40 mg SQ DAILY 7 Days #7 ml 01/19/20 oxyCODONE HCL/ACETAMINOPHEN [Percocet 5-325 mg Tablet] 1 each PO Q4H PRN #40 tablet 01/19/20 Forms: Patient Portal Registration
[2020-01-19 19:34] VITALS: BP 155/61
== END 2020-01-19 18:56 | disposition home or self-care (01) | DRG 522 ==
LOC: ER 11:13 → OBSVTOIN 14:30 → MS 14:30 → INTOOBSV 14:30 → MS 15:00
PROVIDERS: ADMIT Family Medicine; ATTEND Family Medicine